=== PATIENT | female | born 1980 | race Caucasian/White ===

== ENCOUNTER 2018-04-15 14:58 | Observation (INO) | payer BC ==
[2018-04-15 16:26] LABS: Appearance CLEAR (CLEAR); Bacteria RARE /HPF (NEGATIVE); Bilirubin NEGATIVE (NEGATIVE); Blood NEGATIVE Ery/ul (0-5); Glucose 50 mg/dL (NEGATIVE); Ketones TRACE (NEGATIVE); Leukocyte Esterase TRACE (NEGATIVE); Mucus SLIGHT /HPF (NEGATIVE); Nitrite NEGATIVE (NEGATIVE); Protein,Urine Dip NEGATIVE (Negative); Specific Gravity 1.017 (1.005-1.025); Urobilinogen NEGATIVE mg/dL (0-1); WBC 0-2 /HPF (0-5)
[2018-04-15] MEDS ORDERED: DIFLUCAN PO SCH (16:45)
[2018-04-15 17:25] VITALS: BP 103/71; PULSE 100
== END 2018-04-15 17:05 | disposition home or self-care (01) ==
LOC: OB 14:58
PROVIDERS: ADMIT Family Medicine; ATTEND Family Medicine
DX: Z34.83 Encounter for supervision of other normal pregnancy, third trimester (principal)
CPT/HCPCS: 81001; 83986; G0378; A9270-GY

== ENCOUNTER 2018-06-09 13:13 | Observation (INO) | payer BC ==
[2018-06-09 13:40] VITALS: BP 130/74; PULSE 93
--- NOTE | 2018-06-09 14:10 | XRAY ---
Indication: Evaluate presentation. Limited OB ultrasound performed to evaluate lie, currently in breech presentation.
== END 2018-06-09 14:40 | disposition home or self-care (01) ==
LOC: OB 13:13
PROVIDERS: ADMIT Family Medicine; ATTEND Family Medicine
DX: Z34.83 Encounter for supervision of other normal pregnancy, third trimester (principal)
CPT/HCPCS: 59025; 76815; G0378

== ENCOUNTER 2018-06-22 05:15 | Inpatient (IN) | payer BC ==
[~2018-06-22 05:15] MED LIST: BICITRA 30 ML CUP PO SCH; CEFAZOLIN 2 GM-D5W BAG** 2 GM/50 ML ML IV SCH; Lactated Ringers 1,000 ML IV SCH; Pepcid 20 MG VIAL IV SCH; Reglan 10 MG/2 ML IV SCH
[2018-06-22] MEDS ORDERED: Astramorph-Pf 5 MG/10 ML IJ ONE (06:00)
[2018-06-22 06:11] LABS: INR 0.86 (0.8-3.0)
[2018-06-22 06:13] LABS: PTT 24.5 SECONDS (25.3-37.0)
[2018-06-22 06:17] LABS: Hematocrit 36.3 % (35-47); Hemoglobin 11.9 gm/dl (12.0-16.0); Mean Cell Volume 100.6 fl (78-100); Mean Corpuscular Hgb Concent. 32.8 g/dl (32-36); Mean Platelet Volume 12.8 fl (6-9.5); Platelet Count 98 K/mm3 (150-450); Red Blood Count 3.61 M/mm3 (4.1-5.4); Red Cell Distribution Width 13.3 % (11.5-14.0); White Blood Count 8.4 K/mm3 (4.0-10.5)
[2018-06-22 06:19] LABS: Mean Corpuscular Hemoglobin 32.9 pg (26-32)
[2018-06-22] MEDS ORDERED: Lactated Ringers 1,000 ML IV ONE ×2 (06:31→06:43)
[2018-06-22 06:42] LABS: Slide Review YES
[2018-06-22 06:45] LABS: ABO TYPING O; Antibody Screen NEGATIVE (NEGATIVE); RH TYPING POSITIVE
[2018-06-22] MEDS ORDERED: HOLD NARCOTIC ANALGESICS AND SEDATIVES X24 HR MC PRN (08:00)
[2018-06-22] MEDS ORDERED: CLARITIN 10 MG PO PRN (08:00)
[2018-06-22] MEDS ORDERED: Nubain 10 MG/ML IV PRN (08:00)
[2018-06-22] MEDS ORDERED: Zofran 4 MG/2 ML VIAL IV PRN (08:00)
[2018-06-22] MEDS ORDERED: DEMEROL 50 MG IV PRN (08:00)
[2018-06-22] MEDS ORDERED: MORPHINE SULFATE 2 MG INJ IV PRN (08:00)
[2018-06-22] MEDS ORDERED: PERCOCET TABLET 5/325MG PO PRN (08:00)
[2018-06-22] MEDS ORDERED: BENADRYL 50 MG/ML IV PRN (08:00)
[2018-06-22] MEDS ORDERED: Narcan 0.4 MG/ML IV PRN (08:00)
--- NOTE | 2018-06-22 09:11 | OP ---
SURGERY DATE/TIME: 06/22/2018 0750 PREOPERATIVE DIAGNOSES: 1) Breech presentation. 2) Term intrauterine . POSTOPERATIVE DIAGNOSES: 1) Breech presentation. 2) Term intrauterine . PROCEDURE: Primary low transverse section. SURGEON: Michael Triplett M.D. ANESTHESIA: Spinal by Jake Weir CRNA. ESTIMATED BLOOD LOSS: 400 cc. IV FLUIDS: 1700 cc of Crystalloid. URINE OUTPUT: 300 cc clear straw-colored urine. SPECIMEN: None. DESCRIPTION OF PROCEDURE: After informed written consent was obtained, the patient was taken to the OR. She underwent spinal anesthesia, had a Garcia placed, was prepped and draped in usual sterile fashion. Adequate level of anesthesia was verified and then a low transverse skin incision was made by knife and carried down through the subcutaneous fat to the level of the fascia. The fascia was nicked on both sides of the midline and extended in horizontal using curved Cornejo scissors. The superior free edge of the fascia was grasped with Ramesh clamps and the underlying rectus muscles were dissected free. The same was repeated inferiorly. The peritoneum was then opened and extended in horizontal fashion. A bladder flap was created and then reflected over the lower uterine segment. Horizontal uterine incision was made by knife and carried down. There were multiple varicosities on the exterior of the uterus. Upon incising the uterus there was a large sinus with significant bleeding. The amniotic membranes were carefully artificially ruptured. A viable male was delivered from the breech presentation with strong cry immediately after delivery. The oropharynx and nares were bulb suctioned free. The cord was clamped and cut. He was handed off to the awaiting nursery team. Placenta was removed and then the uterus was exteriorized. The uterine cavity was sponge curetted clean with a lap sponge. The uterine incision was closed with #1 chromic in a running locked fashion. Two layers were used to provide good closure and good hemostasis. Posterior cul-de-sac was wiped free of blood and clot. The uterus was returned to the peritoneal cavity. The lateral gutters were wiped free of blood and clot. Again the uterine incision was inspected and noted to be hemostatic with good closure. Next, the fascia was closed with 0 Vicryl in a running fashion. Good closure and good hemostasis were achieved. The subcutaneous fat was irrigated with warm, sterile saline and any areas of bleeding were cauterized with electrocautery. Finally, the skin layer was closed with 4-0 undyed Vicryl in a running subcuticular fashion. Steri-Strips and occlusive dressing were placed over the incision. The patient was transferred to the recovery room in good condition.
[2018-06-22 09:48] LABS: ALKALINE PHOSPHATASE 76 U/L (38-126); ANION GAP 11.2 MEQ/L (5-15); BLOOD UREA NITROGEN 14 mg/dL (7-17); CHLORIDE 109 mmol/L (98-107); Calcium 8.5 mg/dL (8.4-10.2); Carbon Dioxide 20 mmol/L (22-30); Creatinine 1 0.57 mg/dL (0.52-1.04); Glucose 99 mg/dL (74-106); MAGNESIUM 1.6 mg/dL (1.6-2.3); Potassium 3.8 mmol/L (3.5-5.1); SGOT/AST 17 U/L (14-36); SGPT/ALT 11 U/L (0-35); SODIUM 137 mmol/L (137-145); Total Protein 5.9 g/dL (6.3-8.2)
[2018-06-22] MEDS ORDERED: Dulcolax 10 MG SUPP PR PRN (10:00)
[2018-06-22] MEDS ORDERED: LANSINOH 40 GM TOP PRN (10:00)
[2018-06-22] MEDS ORDERED: Anucort-HC SUPPOSITORY PR PRN (10:00)
[2018-06-22] MEDS ORDERED: Mylicon 80MG PO PRN (10:00)
[2018-06-22] MEDS ORDERED: CORTISONE 1% CREAM TP PRN (10:00)
[2018-06-22] MEDS ORDERED: TYLENOL EXTRA STRENGTH 500 MG PO PRN (10:00)
[2018-06-22 10:30] LABS: Appearance CLEAR (CLEAR); Bilirubin NEGATIVE (NEGATIVE); Blood NEGATIVE Ery/ul (0-5); Glucose NEGATIVE (NEGATIVE); Ketones NEGATIVE (NEGATIVE); Leukocyte Esterase NEGATIVE (NEGATIVE); Mucus SLIGHT /HPF (NEGATIVE); Nitrite NEGATIVE (NEGATIVE); Protein,Urine Dip NEGATIVE (Negative); Specific Gravity 1.014 (1.005-1.025); Urobilinogen NEGATIVE mg/dL (0-1)
[2018-06-22 10:49] LABS: Amphetamine,Urine NEGATIVE (NEGATIVE); Barbiturate,Urine NEGATIVE (NEGATIVE); Benzodiazepine,Urine NEGATIVE (NEGATIVE); Cocaine,Urine NEGATIVE (NEGATIVE); Methadone,Urine NEGATIVE (NEGATIVE); Opiate,Urine NEGATIVE (NEGATIVE); PCP,Urine NEGATIVE (NEGATIVE); THC,Urine NEGATIVE (NEGATIVE)
[2018-06-22] MEDS: Dextrose 5%-Lr IV Solution 1000 ML 1,000 ML IV SCH ×2 (12:00→20:01)
[2018-06-22] MEDS ORDERED: Ephedrine Sulfate 50 MG/ML IJ ONE (12:25)
[2018-06-22] MEDS ORDERED: PHENYLEPHRINE HCL IJ ONE (12:25)
[2018-06-22] MEDS ORDERED: Pitocin 10 UNITS/ML IV ONE (12:25)
[2018-06-22] MEDS ORDERED: ROBINUL IV ONE (12:25)
[2018-06-22] MEDS ORDERED: Marcaine MPF 0.25% 30 ML IJ ONE (12:25)
[2018-06-22 15:08] LABS: BASOPHIL % 0.1 % (0.0-0.4); Basophil (Absolute #) 0.02 (0-0.4); Eosinophil % 0.2 % (0.00-5.0); Eosinophil (Absolute #) 0.03 (0-0.5); Granulocyte Absolute (ANC) 12.43 (1.4-6.9); Granulocytes % 84.7 % (36.0-66.0); Hematocrit 31.1 % (35-47); Hemoglobin 10.2 gm/dl (12.0-16.0); Lymphocyte (Absolute #) 1.21 (1.0-4.6); Lymphocytes % 8.2 % (24.0-44.0); Mean Cell Volume 102.3 fl (78-100); Mean Corpuscular Hgb Concent. 32.8 g/dl (32-36); Mean Platelet Volume 12.4 fl (6-9.5); Monocytes % 6.8 % (0.0-12.0); Platelet Count 94 K/mm3 (150-450); Red Blood Count 3.04 M/mm3 (4.1-5.4); Red Cell Distribution Width 13.3 % (11.5-14.0); White Blood Count 14.7 K/mm3 (4.0-10.5)
[2018-06-22 15:12] LABS: Mean Corpuscular Hemoglobin 33.5 pg (26-32)
[2018-06-22 17:34] LABS: Slide Review 1 YES
[2018-06-22] MEDS: MOTRIN 400 MG PO PRN (18:39)
[2018-06-22] MEDS: Colace 100 MG PO SCH (22:41)
[2018-06-23] MEDS: MOTRIN 400 MG PO PRN ×2 (03:19→16:51)
[2018-06-23 05:50] LABS: BASOPHIL % 0.1 % (0.0-0.4); Basophil (Absolute #) 0.01 (0-0.4); Granulocyte Absolute (ANC) 7.78 (1.4-6.9); Granulocytes % 78.7 % (36.0-66.0); Hematocrit 26.4 % (35-47); Hemoglobin 8.7 gm/dl (12.0-16.0); Lymphocyte (Absolute #) 1.43 (1.0-4.6); Lymphocytes % 14.5 % (24.0-44.0); Mean Cell Volume 101.5 fl (78-100); Mean Corpuscular Hemoglobin 33.4 pg (26-32); Mean Platelet Volume 12.3 fl (6-9.5); Monocyte (Absolute #) 0.56 (0.0-1.3); Monocytes % 5.7 % (0.0-12.0); Platelet Count 90 K/mm3 (150-450); Red Cell Distribution Width 13.3 % (11.5-14.0); White Blood Count 9.9 K/mm3 (4.0-10.5)
[2018-06-23 06:49] LABS: Slide Review 1 YES
[2018-06-23] MEDS ORDERED: DEMEROL 50 MG IV PRN (08:00)
[2018-06-23] MEDS ORDERED: Phenergan 25 MG INJ IM PRN (08:00)
[2018-06-23] MEDS: NORCO 5/325 MG PO PRN ×3 (09:49→20:37)
[2018-06-23] MEDS: FERREX 150 PO SCH (09:49)
[2018-06-23] MEDS: Colace 100 MG PO SCH ×2 (09:50→20:39)
[2018-06-24] MEDS: MOTRIN 400 MG PO PRN ×3 (00:52→12:00)
[2018-06-24 02:20] VITALS: O2SAT 100
[2018-06-24] MEDS: NORCO 5/325 MG PO PRN ×2 (05:50→10:07)
--- NOTE | 2018-06-24 08:40 | PCM.DS ---
Discharge Summary Date of Admission: 06/22/18 05:15 Admitting Physician: RICARDO MUÑOZ Consults: Consults on Case 06/22/18 04:00 Notify Anesthesia Provider ROUTINE Notify Physician OF ADMISSION Primary Care Provider: RICARDO MUÑOZ Allergies Allergies No Known Drug Allergies Allergy (Verified 04/15/18 15:18) Hospital Summary - Hospital Course Hospital Course: patient had on 06/22 for breech presentation, doing well postoperatively. pain controlled, mild lochia - Vitals & Intake/Output Vital Signs: Vital Signs Temperature 97.7 F 06/24/18 02:10 Pulse Rate 69 06/24/18 02:10 Respiratory Rate 20 06/24/18 02:10 Blood Pressure 112/59 06/24/18 02:10 O2 Sat by Pulse Oximetry 100 06/24/18 02:10 Intake & Output: Intake & Output 06/21/18 06/22/18 06/23/18 06/24/18 11:59 11:59 11:59 11:59 Intake Total 400 1050 Output Total 800 Balance -400 1050 Weight 72.121 kg - Lab Result Diagrams: 06/23/18 05:00 06/22/18 09:24 Micro Results-Entire Visit: Microbiology 06/22/18 08:00 Urine Culture - Final Urine, Catheterized NO GROWTH - Procedures and Test Procedures and Tests throughout Hospitalization: Therapy Orders & Screens 06/22/18 08:54 Standby Routine Comment: Diagnosis: IUP Discharge Exam General Appearance: no apparent distress, alert Skin Exam: normal color, warm, dry Respiratory Exam: normal breath sounds, lungs clear, No respiratory distress Cardiovascular Exam: regular rate/rhythm, normal heart sounds Gastrointestinal/Abdomen Exam: soft, other (incision clean, dry, intact and well approximated), No tenderness, No mass Final Diagnosis/Problem List - Final Discharge Diagnosis/Problem (1) delivery delivered Current Visit: Yes Status: Acute Code(s): O82 - ENCOUNTER FOR DELIVERY WITHOUT INDICATION - Discharge Disposition: Home, Self-Care Condition: Stable Prescriptions: New Hydrocodone Bit/Acetaminophen [[place] 7.5-325 Tablet] 1 each PO Q6H PRN PRN # 28 tablet PRN Reason: Pain Discontinued Vits W-Ca,Fe,FA(<1Mg) [] 1 tab PO DAILY Follow up with: RICARDO MUÑOZ MD [Primary Care Provider] - 1 Week
[2018-06-24] MEDS: Colace 100 MG PO SCH ×2 (09:42→09:47)
[2018-06-24] MEDS: FERREX 150 PO SCH ×2 (09:43→09:47)
[2018-06-24] MEDS ORDERED: Adacel Vial IM ONE (10:00)
[2018-06-24 16:36] VITALS: BP 120/66; PULSE 89
== END 2018-06-24 12:50 | disposition home or self-care (01) | DRG 788 ==
LOC: OB 05:15
PROVIDERS: ADMIT Family Medicine; ATTEND Family Medicine
PROC: 10D00Z1 Extraction of Products of Conception, Low, Open Approach (ICD-10-PCS; principal; 2018-06-22)
DX: O32.1XX0 Maternal care for breech presentation, not applicable or unspecified (principal); Z3A.39 39 weeks gestation of pregnancy; Z37.0 Single live birth
CPT/HCPCS: 36415; 62322; 64488; 76937; 76942; 80053; 80307; 81001; 83735; 85025; 85027; 85610; 85730; 86850; 86900; 86901; 87086; 90715; 94799; J0690; J2274; J2370; J2405; J2590; L0625; A9270-GY

== ENCOUNTER 2019-06-03 12:45 | Emergency (ER) | payer BC ==
[2019-06-03 13:18] VITALS: BP 137/95; PULSE 103; O2SAT 99
--- NOTE | 2019-06-03 13:22 | ERPHSYRPT ---
- History of Present Illness Time Seen by Provider: 06/03/19 13:07 Source: patient Exam Limitations: no limitations Physician History: 10 days ago pt started with chest congestion; 7 days ago body aches, 100 degree fever, diaphoresis, non-productive cough, sore throat, nasal congestion, decreased appetite and intermittent mild frontal headache. pt vomited once about 3 days ago without blood. Allergies/Adverse Reactions: No Known Drug Allergies Allergy (Verified 06/03/19 13:17) Travel Risk - International Travel Have you traveled outside of the country in past 3 weeks: No Have you or anyone close to you been diagnosed with or: No Do your reside in a community with a known COVID-19 case?: No - Coronavirus Screening Has patient experienced Coronavirus symptoms: Yes Symptoms experienced: respiratory symptoms (i.e.[place],shortness of breath) Date of respiratory symptoms onset:: 05/27/19 (cough) - Review of Systems Constitutional: Fever, Other (diaphoresis) Ears, Nose, & Throat: Nose Congestion, Throat Pain Respiratory: Cough, Other (chest congestion) Abdominal/Gastrointestinal: Vomiting, Appetite Changes (decreased for the past week.), No Abdominal Pain, No Diarrhea Genitourinary Symptoms: No Dysuria Musculoskeletal: Arthralgias Neurological: Headache All Other Systems: Reviewed and Negative - Past Medical History Pertinent Past Medical History: No - Past Surgical History Past Surgical History: Yes Other Surgical History: breast augmentation, umbilical hernia, rectoseal - Social History Smoking Status: Former smoker Exposure to second hand smoke: No Drug Use: none - Nursing Vital Signs Nursing Vital Signs: Initial Vital Signs Temperature 98.4 F 06/03/19 13:05 Pulse Rate 103 H 06/03/19 13:05 Respiratory Rate 14 06/03/19 13:05 Blood Pressure 137/95 06/03/19 13:05 O2 Sat by Pulse Oximetry 99 06/03/19 13:05 - Physical Exam General Appearance: alert Eye Exam: PERRL/EOMI Ears, Nose, Throat Exam: TMs normal, moist mucous membranes, pharyngeal erythema (mild) Neck Exam: normal inspection Respiratory Exam: lungs clear Cardiovascular Exam: normal heart sounds Gastrointestinal/Abdomen Exam: soft, normal bowel sounds Back Exam: normal inspection Extremity Exam: No pedal edema Neurologic Exam: alert, cooperative SpO2 Interpretation: normal SpO2: 99 O2 Delivery: Room Air - Course Nursing assessment & vital signs reviewed: Yes - Radiology Exams Chest X-ray Interpretation: Interpreted by me (no pneumonia) Ordered Tests: Active Orders 24 hr Category Date Time Status CHEST 2 VIEWS (PA AND LAT) Stat Exams 06/03/19 13:15 Taken CBC W DIFF Stat Lab 06/03/19 13:45 Completed CMP Stat Lab 06/03/19 13:45 Completed MAGNESIUM Stat Lab 06/03/19 13:45 Completed Manual Differential NC Stat Lab 06/03/19 13:45 Completed [place] Screen Stat Lab 06/03/19 13:45 Completed Medication Summary Discontinued Medications Generic Name Dose Route Start Last Admin Trade Name Freq PRN Reason Stop Dose Admin Ibuprofen 400 mg 06/03/19 15:04 Motrin 400 Mg PO 06/03/19 15:05 STAT ONE Lab/Rad Data: Laboratory Result Diagrams 06/03/19 13:45 06/03/19 13:45 Laboratory Results 06/03/19 06/03/19 06/03/19 Range/Units 13:45 13:45 13:45 WBC (4.0-10.5) K/mm3 RBC (4.1-5.4) M/mm3 Hgb (12.0-16.0) gm/dl Hct (35-47) % MCV (78-100) fl MCH (26-32) pg MCHC (32-36) g/dl RDW (11.5-14.0) % Plt Count (150-450) K/mm3 MPV (7.5-11.0) fl Segmented Neutrophils (36.0-66.0) % Band Neutrophils (0.0-2.0) % Lymphocytes (Manual) (24-44) % Monocytes (Manual) (0.0-12.0) % Eosinophils (Manual) (0.00-3.0) % Atypical Lymphocytes % Platelet Estimate (NORMAL) RBC Morphology Sodium 141 (137-145) mmol/L Potassium 3.8 (3.5-5.1) mmol/L Chloride 101 (98-107) mmol/L Carbon Dioxide 29 (22-30) mmol/L Anion Gap 15.5 H (5-15) MEQ/L BUN 13 (7-17) mg/dL Creatinine 0.58 (0.52-1.04) mg/dL Estimated GFR > 60.0 ML/MIN Glucose 163 H (74-106) mg/dL Calcium 9.4 (8.4-10.2) mg/dL Magnesium 2.3 (1.6-2.3) mg/dL Total Bilirubin 0.50 (0.2-1.3) mg/dL AST 26 (14-36) U/L ALT 18 (0-35) U/L Alkaline Phosphatase 72 (38-126) U/L Serum Total Protein 8.2 (6.3-8.2) g/dL Albumin 4.3 (3.5-5.0) g/dL Monoscreen POSITIVE (Negative) Influenza Type A Ag NEGATIVE (NEGATIVE) Influenza Type B Ag NEGATIVE (NEGATIVE) RSV (PCR) NEGATIVE (Negative) Group A Strep Antibody NOT DETECTED (NEGATIVE) 06/03/19 Range/Units 13:45 WBC 14.9 H (4.0-10.5) K/mm3 RBC 4.44 (4.1-5.4) M/mm3 Hgb 14.3 (12.0-16.0) gm/dl Hct 43.2 (35-47) % MCV 97.3 (78-100) fl MCH 32.2 H (26-32) pg MCHC 33.1 (32-36) g/dl RDW 12.4 (11.5-14.0) % Plt Count 300 (150-450) K/mm3 MPV 10.0 (7.5-11.0) fl Segmented Neutrophils 78 H (36.0-66.0) % Band Neutrophils 4 H (0.0-2.0) % Lymphocytes (Manual) 8 L (24-44) % Monocytes (Manual) 6 (0.0-12.0) % Eosinophils (Manual) 2 (0.00-3.0) % Atypical Lymphocytes 2 % Platelet Estimate NORMAL (NORMAL) RBC Morphology NORMAL Sodium (137-145) mmol/L Potassium (3.5-5.1) mmol/L Chloride (98-107) mmol/L Carbon Dioxide (22-30) mmol/L Anion Gap (5-15) MEQ/L BUN (7-17) mg/dL Creatinine (0.52-1.04) mg/dL Estimated GFR ML/MIN Glucose (74-106) mg/dL Calcium (8.4-10.2) mg/dL Magnesium (1.6-2.3) mg/dL Total Bilirubin (0.2-1.3) mg/dL AST (14-36) U/L ALT (0-35) U/L Alkaline Phosphatase (38-126) U/L Serum Total Protein (6.3-8.2) g/dL Albumin (3.5-5.0) g/dL Monoscreen (Negative) Influenza Type A Ag (NEGATIVE) Influenza Type B Ag (NEGATIVE) RSV (PCR) (Negative) Group A Strep Antibody (NEGATIVE) - Progress Progress: unchanged - Departure Departure Disposition: Home Clinical Impression: Mononucleosis Condition: Stable Critical Care Time: No Referrals: RICARDO MUÑOZ MD [Primary Care Provider] - Instructions: Mononucleosis (DC) Additional Instructions: Follow up with private doctor tomorrow. Forms: Work/School Release Form Prescriptions: Ibuprofen [IBUPROFEN 400 MG TABLET] 1 tablet PO BIDWM PRN #24 tablet PRN Reason: Pain And/Or Fever
[2019-06-03 13:51] LABS: Hematocrit 43.2 % (35-47); Hemoglobin 14.3 gm/dl (12.0-16.0); Mean Cell Volume 97.3 fl (78-100); Mean Corpuscular Hemoglobin 32.2 pg (26-32); Mean Corpuscular Hgb Concent. 33.1 g/dl (32-36); Platelet Count 300 K/mm3 (150-450); Red Blood Count 4.44 M/mm3 (4.1-5.4); Red Cell Distribution Width 12.4 % (11.5-14.0); White Blood Count 14.9 K/mm3 (4.0-10.5)
[2019-06-03 14:06] LABS: ALBUMIN 4.3 g/dL (3.5-5.0); ALKALINE PHOSPHATASE 72 U/L (38-126); ANION GAP 15.5 MEQ/L (5-15); BLOOD UREA NITROGEN 13 mg/dL (7-17); CHLORIDE 101 mmol/L (98-107); Calcium 9.4 mg/dL (8.4-10.2); Carbon Dioxide 29 mmol/L (22-30); Creatinine 1 0.58 mg/dL (0.52-1.04); Glucose 163 mg/dL (74-106); MAGNESIUM 2.3 mg/dL (1.6-2.3); Potassium 3.8 mmol/L (3.5-5.1); SGOT/AST 26 U/L (14-36); SGPT/ALT 18 U/L (0-35); SODIUM 141 mmol/L (137-145); Total Protein 8.2 g/dL (6.3-8.2)
[2019-06-03 14:17] LABS: Group A Strep NOT DETECTED (NEGATIVE)
[2019-06-03 14:24] LABS: INFLUENZA A NEGATIVE (NEGATIVE); INFLUENZA B NEGATIVE (NEGATIVE); RESPIRATORY SYNCTIAL VIRUS NEGATIVE (Negative)
[2019-06-03 14:25] LABS: ATYPICAL LYMPHS 2 %; BAND 4 % (0.0-2.0); Eosinophil 2 % (0.00-3.0); Lymphocytes 8 % (24-44); Monocyte 6 % (0.0-12.0); Neutrophils 78 % (36.0-66.0); Platelet Estimate NORMAL (NORMAL); Total Cells Counted 100
[2019-06-03] MEDS ORDERED: MOTRIN 400 MG PO ONE (15:04)
[2019-06-03] MEDS ORDERED: MOTRIN 400 MG ONE (15:09)
--- NOTE | 2019-06-03 19:05 | XRAY ---
Indication: Cough and congestion. Back pain. Comparison: None PA/lateral chest demonstrates normal heart and lungs. Bony thorax intact with mild pectus excavatum deformity.
== END 2019-06-03 15:21 | disposition home or self-care (01) ==
LOC: ED 12:45
DX: B27.90 Infectious mononucleosis, unspecified without complication (principal)
CPT/HCPCS: 36415; 71046; 80053; 83735; 85025; 86308; 87631; 87651; 99284; A9270-GY